=== PATIENT | female | born 1990 | race Caucasian/White ===

== ENCOUNTER 2022-04-15 22:18 | Emergency (ER) | payer BC, SELFPAY ==
[2022-04-15 22:29] VITALS: BP 133/84; PULSE 102; RESP 18; TEMP 36.8; O2SAT 100
--- NOTE | 2022-04-15 23:05 | ED.GENADULT ---
HPI - General Adult General Chief complaint: Unspecified <Anusha Rojas PA-C - Last Filed: 04/16/22 00:31> Stated complaint: thrombosed hemorrhoids <Anusha Rojas PA-C - Last Filed: 04/16/22 00:31> Time Seen by Provider: 04/15/22 22:47 <Anusha Rojas PA-C - Last Filed: 04/16/22 00:31> Source: patient <Anusha Rojas PA-C - Last Filed: 04/16/22 00:31> Mode of arrival: ambulatory <JORGE Syed Last Filed: 04/16/22 00:31> Limitations: no limitations <Anusha Rojas PA-C - Last Filed: 04/16/22 00:31> History of Present Illness HPI narrative: This is a 31-year-old female that presents to the emergency department for rectal pain worsening over the last couple of days. Reports longstanding history of hemorrhoids. Reports she feels as if she has a thrombosed 1 currently. She has tried several udri-ecy-pdbhycv treatments without relief including topical corticosteroid, steroid suppository, and Tucks pads. Patient is currently 38 weeks , her OB is Dr. Mcintyre. Prompted her to be seen in the ED to possibly have the hemorrhoid lanced. Denies pelvic cramping, vaginal bleeding, or any other related concerns. <Anusha Rojas PA-C - Last Filed: 04/16/22 00:31> Related Data Home medications: Home Medications Medication Instructions Recorded Confirmed ferrous sulfate 325 mg (65 mg 325 mg PO DAILY 03/27/22 03/27/22 iron) tablet prenat.vits,erick,uhj-rygj-mdlqa 1 tablet PO DAILY 03/27/22 03/27/22 sertraline 50 mg tablet 50 mg PO DAILY 03/27/22 03/27/22 doxylamine 20 mg-pyridoxine 20 mg tablet PO 04/15/22 tablet,immediate and delayed release (Bonjesta) <JORGE Syed Last Filed: 04/16/22 00:31> Allergies/adverse reactions: Allergies Allergy/AdvReac Type Severity Reaction Status Date / Time No Known Allergies Allergy Verified 04/15/22 22:32 <Anusha Rojas PA-C - Last Filed: 04/16/22 00:31> Review of Systems Review of Systems: CONSTITUTIONAL: Denies fever GASTROINTESTINAL: Reports rectal pain <Anusha Rojas PA-C - Last Filed: 04/16/22 00:31> All systems reviewed & are unremarkable except as noted in HPI and below <Anusha Rojas PA-C - Last Filed: 04/16/22 00:31> PMFSH Past Medical History Medical History: Medical History (Updated 04/16/22 @ 00:20 by Anusha Rojas PA-C) History of depression <Anusha Rojas PA-C - Last Filed: 04/16/22 00:31> Family History Family History: Family History (Updated 03/27/22 @ 13:20 by Mena Dominique RN) Father Hypertension Mother Diabetes mellitus Colon cancer <Anusha Rojas PA-C - Last Filed: 04/16/22 00:31> Social History Social History: Social History Substance use: never Spiritual care concerns: No <Anusha Rojas PA-C - Last Filed: 04/16/22 00:31> Exam Narrative: GENERAL: Well-appearing, well-nourished, and in no acute distress. HEAD: Normocephalic, atraumatic. EYES: EOMI. CHEST: No respiratory distress. HEART: Regular rate ABDOMEN: Gravid EXTREMITIES: Normal range of motion. No edema. SKIN: Warm, dry, no rash. NEURO: No focal deficits. Alert and oriented x3. 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 <Mirza Ray MD - Last Filed: 04/16/22 01:05> Consultations Consultation #1: Spoke with Dr. Mcintyre about patient and workup who agrees with incision of thrombosed hemorrhoid for some temporary relief <Anusha Rojas PA-C - Last Filed: 04/16/22 00:31> Date: 04/15/22 <Anusha Rojas PA-C - Last Filed: 04/16/22 00:31> Vital Signs Vital signs: Vital Signs Temperature 36.8 C 04/15/22 22:29 Pulse Rate 102 H 04/15/22 22:29 Respiratory Rate 18 04/15/22 22:29 Blood Pressu
[2022-04-15] MEDS: LIDOCAINE, EPINEPHRINE, TETRACAINE VISCOUS SOLN 3 ML TOPICAL (23:13)
[2022-04-16 00:24] VITALS: BP 106/69; PULSE 94; RESP 19; O2SAT 98
== END 2022-04-16 00:39 | disposition home or self-care (01) ==
PROVIDERS: Emergency Provider Emergency Medicine; PCP Physician Assistant Medical
DX: K64.5 Perianal venous thrombosis (principal); F32.A Depression, unspecified
CPT/HCPCS: 46083; 99283

== ENCOUNTER 2022-04-19 10:19 | Inpatient (IN) | payer BC, SELFPAY ==
[2022-04-19] VITALS (19 sets, daily range): BP systolic 121–144; BP diastolic 69–122; PULSE 68–107; RESP 14–18; TEMP 36.2–37; O2SAT 97–100; BMI 28.4
[2022-04-19] MEDS: ONDANSETRON INJ 4 MG/2 ML VIAL IV PUSH (10:39)
[2022-04-19] MEDS: LACTATED RINGERS 1,000 ML 125 ML IV CONT (10:41)
[2022-04-19 10:54] LABS: Hematocrit 34.9 % (37.0-47.0); Hemoglobin 10.4 g/dL (12.0-15.0); Mean Corpuscular HGB Conc 29.8 g/dl (32-36); Mean Corpuscular Hemoglobin 26.3 pg (26-34); Mean Corpuscular Volume 88.4 fl (80-100); Mean Platelet Volume 10.1 fl (7.4-10.4); Platelet Count Result 260 k/mm3 (150-375); Red Blood Count 3.95 M/mm3 (4.2-5.4); Red Cell Distribution Width 22.5 % (11.5-14.5); White Blood Count 8.9 K/mm3 (4.5-10.0)
[2022-04-19] MEDS: fentaNYL CITRATE INJ (*CRX) 100 MCG/2 ML VIAL IV PUSH (11:05)
[2022-04-19 11:29] LABS: Total Cells Counted 100
[2022-04-19 11:30] LABS: Anisocytosis 1+ (NORMAL); Band Neutrophils Percent 26 % (0-6); Lymphocytes Absolute Manual 1.86 K/mm3 (1.1-4.5); Lymphocytes Percent Manual 21 % (18-44); Metamyelocytes Percent 5 %; Monocytes Absolute Manual 0.62 K/mm3 (0.1-0.90); Monocytes Percent Manual 7 % (3-9); Neutrophils Absolute Manual 5.96 K/mm3 (1.7-7.2); Neutrophils Percent Manual 41 % (46-73); Platelet Estimate Adequate (Adequate); Poikilocytosis 1+ (NORMAL)
[2022-04-19] MEDS: LIDOCAINE HCL 1% LOCAL INJ 10 ML VIAL (11:40)
--- NOTE | 2022-04-19 11:57 | WPDOBADMIT ---
Obstetrics - Admit Note Admission Note: record reviewed. Additions to the history and/or subsequent changes in the physical findings follow. 31 y/o at 39 1/7 weeks gestation who presented with contractions. Had SROM with thick meconium. GBS neg. AVSS ABD soft, nontender, gravid, vertex EXT nontender Cervix C/+2 A: IUP at term with labor, meconium. P: See delivery note.
--- NOTE | 2022-04-19 11:57 | PM.OBPRVD ---
OB - Delivery Note Procedure Delivery date: 04/19/22 Procedure: Induction method: None Delivery monitor: External FHT and External Uterine Route of delivery: Laceration Description: Perineal - 2nd Degree Delivery repair: vicryl (3-0) Specimen: Yes (cord blood, placenta) Quantitative Blood Loss (ml): 160 Anesthesia type: Local (1% lidocaine) Disposition: PACU Complications: None Narrative: 31 y/o at 39 1/7 weeks gestation who presented to the hospital with contractions. Had SROM with thick meconium. Her labor progressed rapidly. She pushed with good effort and delivered the infant's head to the perineum, followed by the body. The cord was clamped and cut and the was handed off to the waiting network systems integrator. Cord blood was collected. The placenta delivered spontaneously and was grossly normal in appearance. The usual 3 vessel cord was noted. A second degree midline perineal laceration was sustained. This was infiltrated with 10 mL of 1% lidocaine and reapproximated using 3 0 Vicryl in the usual layered fashion. Excellent hemostasis resulted as did excellent reapproximation of the normal anatomy. Needle and instrument counts were correct. The patient was taken to recovery room in stable condition. The went to the special care nursery. I was present and scrubbed for the entire delivery. Baby Date of : 04/19/22 Time of : 11:27 Weeks of gestation at delivery: 39 gender: Male Weight (pounds): 8 Weight (ounces): 7 presentation: vertex position: Left Occiput Anterior Placenta delivery description: Spontaneous and Normal Configuration Cord Vessel Description: 3 Vessels
--- NOTE | 2022-04-19 12:00 | PM.OBDSVD ---
DS: Admitting Diagnosis Discharge Date 04/20/22 Admitting Diagnosis IUP at term Labor DS: Discharge Diagnosis Discharge Diagnosis (1) (normal spontaneous vaginal delivery): Code(s): O80 - Encounter for full-term uncomplicated delivery Status: Acute OB - DS: Summary OB Procedures : None OB Procedures Intrapartum: Spontaneous Vag Delivery OB Procedures: : None Time Spent with Patient Time attestation: Total time spent providing and/or coordinating discharge services: DS: Data Data Completed and Pending Labs on day of discharge: Labs from last 24 hours 04/19/22 04/19/22 10:36 10:36 WBC 8.9 RBC 3.95 L Hgb 10.4 L Hct 34.9 L MCV 88.4 MCH 26.3 MCHC 29.8 L RDW 22.5 H Plt Count 260 MPV 10.1 Immature Gran % (Auto) Snow Plow Operator Neut % (Auto) Snow Plow Operator Lymph % (Auto) Snow Plow Operator Bay % (Auto) Snow Plow Operator Eos % (Auto) Snow Plow Operator Baso % (Auto) Snow Plow Operator Lymph # (Auto) Snow Plow Operator Bay # (Auto) Snow Plow Operator Eos # (Auto) Snow Plow Operator Baso # (Auto) Snow Plow Operator Abs Immat Gran (auto) Snow Plow Operator Absolute Neuts (auto) Snow Plow Operator Absolute Nucleated RBC Snow Plow Operator Total Counted 100 Neutrophils % (Manual) 41 L Band Neutrophils % 26 H Lymphocytes % (Manual) 21 Monocytes % (Manual) 7 Metamyelocytes % 5 Nucleated RBC % Snow Plow Operator Abs Neuts (Manual) 5.96 Abs Lymphs (Manual) 1.86 Abs Monocytes (Manual) 0.62 Platelet Estimate Adequate Poikilocytosis 1+ Anisocytosis 1+ RPR Pending Discharge Plan Discharge Attending physician on discharge: Dandre Mcintyre Discharging Clinician: Dandre Mcintyre Patient Disposition: Home, Self-Care Activity: pelvic rest Diet: regular Discharge Instructions: Call or return if temperature above 100.4? F, increased abdominal pain, increased vaginal bleeding or any new problems. Sitz baths three times daily. Stand Alone Forms: General Discharge Information Follow-up/Referrals: Dandre Mcintyre MD [Physician] - 6 Weeks Discharge Medications: New ibuprofen 600 mg tablet 600 mg PO Q6H PRN (Reason: cramps) Qty: 30 0RF sertraline [Zoloft] 100 mg tablet 100 mg PO DAILY Qty: 30 0RF Continued lidocaine [RectiCare] 5 % cream 1 applic topical BID PRN (Reason: pain) Qty: 15 0RF ferrous sulfate 325 mg (65 mg iron) Tablet 325 mg PO DAILY #2 Tablet 1 tablet PO DAILY Discontinued Bonjesta 20-20 mg tablet,IR,delayed rel,biphasic PO sertraline 50 mg Tablet 50 mg PO DAILY Date of admission: 04/19/22 10:19 Primary Care Provider: Radha,Nay Garrett Admitting Provider: Dandre Mcintyre Attending physician on admission: Dandre Mcintyre Condition: Stable
[2022-04-19] MEDS: ACETAMINOPHEN 500 MG TABLET 1000 MG (12:05)
--- NOTE | 2022-04-19 12:05 | LDADM ---
This patient, Stella Haynes, was admitted to Labor/Delivery/Recovery 107 on 04/19/22 at 10:19. Plans for labor, pain management and were discussed with patient. Patient/family oriented to hospital policies and general routines including ID bracelet, bed and alarms, visiting hours, pain management, procedures, bathroom and other care routines, personal items, smoking policy, room service/diet and guest tray routines, security routines, and visiting hours. Patient/Family are encouraged to report perceived risks to care and to ask questions if they do not understand what they are told or what they should do. See OBIX for further documentation.
[2022-04-19] MEDS: OXYTOCIN 30 UNITS/NS 500 ML 30 UNITS/500 ML BAG 125 UNITS IV CONT (12:08)
[2022-04-19] MEDS: WITCH HAZEL 40 PADS 1 PAD TOPICAL (12:41)
[2022-04-19] MEDS: BENZOCAINE 20% AER SPR (*SP) 56 GM CAN 1 SPRAY TOPICAL (12:41)
[2022-04-19] MEDS: IBUPROFEN 600 MG TABLET PO ×2 (15:25→21:11)
[2022-04-19] MEDS: ACETAMINOPHEN 325 MG TABLET 650 MG PO ×2 (18:15→23:47)
[2022-04-19] MEDS: DOCUSATE SODIUM 100 MG CAPSULE PO (18:15)
[2022-04-20 04:50] VITALS: BP 122/85; PULSE 71; RESP 16; TEMP 36.8; O2SAT 100
[2022-04-20] MEDS: IBUPROFEN 600 MG TABLET PO ×2 (04:54→10:58)
[2022-04-20 05:10] VITALS: PULSE 71; RESP 16; O2SAT 100
[2022-04-20 05:19] LABS: Hematocrit 28.3 % (37.0-47.0); Hemoglobin 8.4 g/dL (12.0-15.0)
[2022-04-20 06:10] LABS: Rapid Plasma Reagin Non-Reactive (NonReactive)
[2022-04-20 07:50] VITALS: BP 120/64; PULSE 74; RESP 16; TEMP 37.1; O2SAT 99
--- NOTE | 2022-04-20 08:53 | P.PNOB_ITS ---
OB - PN: Subj Subjective Date/time seen: 04/20/22 08:53 Narrative: Pain OK. Still has hemorrhoid pain. Baby was transferred yesterday. Stella would like to go home. OB - PN: Obj Data Labs CBC & Chem 7: 04/20/22 04:45 Labs: Laboratory Results - last 24 hr 04/19/22 04/19/22 04/19/22 10:36 10:36 10:36 WBC 8.9 RBC 3.95 L Hgb 10.4 L Hct 34.9 L MCV 88.4 MCH 26.3 MCHC 29.8 L RDW 22.5 H Plt Count 260 MPV 10.1 Immature Gran % (Auto) Insurance Verifier Neut % (Auto) Insurance Verifier Lymph % (Auto) Insurance Verifier Braxton % (Auto) Insurance Verifier Eos % (Auto) Insurance Verifier Baso % (Auto) Insurance Verifier Lymph # (Auto) Insurance Verifier Braxton # (Auto) Insurance Verifier Eos # (Auto) Insurance Verifier Baso # (Auto) Insurance Verifier Abs Immat Gran (auto) Insurance Verifier Absolute Neuts (auto) Insurance Verifier Absolute Nucleated RBC Insurance Verifier Total Counted 100 Neutrophils % (Manual) 41 L Band Neutrophils % 26 H Lymphocytes % (Manual) 21 Monocytes % (Manual) 7 Metamyelocytes % 5 Nucleated RBC % Insurance Verifier Abs Neuts (Manual) 5.96 Abs Lymphs (Manual) 1.86 Abs Monocytes (Manual) 0.62 Platelet Estimate Adequate Poikilocytosis 1+ Anisocytosis 1+ RPR Non-reactive Blood Type O Positive Antibody Screen Negative 04/20/22 04:45 WBC RBC Hgb 8.4 L Hct 28.3 L MCV MCH MCHC RDW Plt Count MPV Immature Gran % (Auto) Neut % (Auto) Lymph % (Auto) Braxton % (Auto) Eos % (Auto) Baso % (Auto) Lymph # (Auto) Braxton # (Auto) Eos # (Auto) Baso # (Auto) Abs Immat Gran (auto) Absolute Neuts (auto) Absolute Nucleated RBC Total Counted Neutrophils % (Manual) Band Neutrophils % Lymphocytes % (Manual) Monocytes % (Manual) Metamyelocytes % Nucleated RBC % Abs Neuts (Manual) Abs Lymphs (Manual) Abs Monocytes (Manual) Platelet Estimate Poikilocytosis Anisocytosis RPR Blood Type Antibody Screen OB - PN A/P Assessment and Plan (1) (normal spontaneous vaginal delivery): Code(s): O80 - Encounter for full-term uncomplicated delivery Status: Acute Plan Comments: A: PPD#1, doing well. P: Home to f/u 6 weeks. Exam Psych: Other: AVSS ABD soft, nontender, fundus firm EXT nontender Perineum shows a small, soft hematoma at the repair site. Hemorrhoids noted.
[2022-04-20] MEDS: MULTIVIT/MIN/PREN/FOL AC/IRON TABLET 1 TAB PO (09:03)
[2022-04-20] MEDS: DOCUSATE SODIUM 100 MG CAPSULE PO (09:03)
[2022-04-20] MEDS: ACETAMINOPHEN 325 MG TABLET 650 MG PO (09:03)
[2022-04-20] MEDS: SERTRALINE HCL 50 MG TABLET 100 MG PO (09:03)
[2022-04-20] MEDS: POLYSACCHARIDE IRON COMPLEX 150 MG CAPSULE PO (09:04)
[2022-04-20] MEDS: AZITHROMYCIN 250 MG TABLET PO (09:10)
[2022-04-20 09:30] VITALS: PULSE 74; RESP 16; O2SAT 99
--- NOTE | 2022-04-20 10:28 | WPDANLDPN2 ---
Anes-Prog Note L&D Date/Time: 04/20/22 10:28 Epidural/Spinal procedure site: clean & non-tender Neuro status: Neuro function grossly intact. Cardiovascular status: normal Respiratory status: normal Airway patency: baseline Mental status: baseline Post-Op hydration status: normal Vital Signs: Last Vital Signs Temp 37.1 C 04/20/22 07:50 Pulse 74 04/20/22 09:30 Resp 16 04/20/22 09:30 BP 120/64 04/20/22 07:50 Pulse Ox 99 04/20/22 09:30 O2 Del Method Room Air 04/20/22 09:30 Pain score (VAS): 0 I/O: Intake & Output 04/19/22 04/20/22 04/20/22 23:59 07:59 15:59 Intake Total 550 240 Output Total 178 Balance 372 240 Post-procedural complaints: none Patient feedback: Patient satisfied with anesthetic care. Other findings: Unsuccessful epidural attempt. Patient now comfortable.
== END 2022-04-20 11:30 | disposition home or self-care (01) | DRG 807 ==
LOC: ANHLDR 10:31 → ANHOB2 16:44
PROVIDERS: Admitting Provider Obstetrics & Gynecology; PCP Physician Assistant Medical; Visit Provider Obstetrics & Gynecology
DX: O77.0 Labor and delivery complicated by meconium in amniotic fluid (principal); Z37.0 Single live birth; O70.1 Second degree perineal laceration during delivery; K64.9 Unspecified hemorrhoids; O62.3 Precipitate labor; Z3A.39 39 weeks gestation of pregnancy
CPT/HCPCS: 36415; 85014; 85018; 85025; 86592; 86850; 86900; 86901; 88307; A9270; J2405; J2590; J2795; J3010; J7120

== ENCOUNTER 2024-02-25 09:08 | Outpatient (CLI) | payer BC, SELFPAY ==
--- NOTE | ~2024-02-25 | MMUS_ITS ---
EXAMINATION: MM diagnostic ingrid BI w [facility], US breast BI complete HISTORY: Probable right breast mass TECHNIQUE: Additional 3-D tomosynthesis images of the breasts were performed and synthetic 2-D images were generated. CAD analysis was submitted and interpreted. High resolution bilateral complete breas t ultrasound was performed. COMPARISON: No prior studies for comparison. BREAST PARENCHYMAL COMPOSITION: Dense: The breasts are extremely dense, which lowers the sensitivity of mammography. FINDINGS: MAMMOGRAPHIC FINDINGS: There are no suspicious masses, calcifications or architectural distortion in either breast to sugges t malignancy. ULTRASOUND: Complete bilateral US of all 4 quadrants of the breasts and retroareolar region was reviewed. Normal heterogeneous echotexture without focal solid or cystic mass. IMPRESSION: 1. No evidence for malignancy in either breast. 2. Routine yearly screening mammogram and regular clinical breast examination are recommended. BI-RADS Category 1: Negative Reviewed, dictated and finalized at location B. IMPRESSION: 1. No evidence for malignancy in either breast. 2. Routine yearly screening mammogram and regular clinical breast examination a re recommended. BI-RADS Category 1: Negative
== END 2024-02-25 09:09 ==
LOC: MICIMG 09:10
PROVIDERS: PCP Obstetrics & Gynecology; Visit Provider Obstetrics & Gynecology
DX: R92.8 Other abnormal and inconclusive findings on diagnostic imaging of breast (principal)
CPT/HCPCS: 76641; 77062; 77066; G0279

== ENCOUNTER 2024-04-10 00:52 | Day surgery (SDC) | payer BC, SELFPAY ==
[2024-03-23 10:47] VITALS: BMI 20.9
[2024-04-10 09:03] VITALS: BP 118/78; PULSE 96; RESP 16; TEMP 36.5; O2SAT 100; BMI 20.1
[2024-04-10] MEDS: LACTATED RINGERS 1,000 ML 150 ML IV CONT (09:21)
--- NOTE | 2024-04-10 09:37 | P.PNAN_ITS ---
Anes - Initial Pre Proc Eval Procedure: Operation Date: 04/10/24 10:30 Proposed Procedures p Colonoscopy - Darrian Rivas MD Date/Time: 04/10/24 09:37 Surgeon: Darrian Rivas MD Pre Op Diagnosis: Abd. Pain, constipation, CIBH Patient Data Age: 33 Gender: F Height: 1.68 m Weight: 56.7 kg Last Vital Signs Temp 36.5 C 04/10/24 09:03 Pulse 96 04/10/24 09:03 Resp 16 04/10/24 09:03 BP 118/78 04/10/24 09:03 Pulse Ox 100 04/10/24 09:03 O2 Del Method Room Air 04/10/24 09:03 Allergies Allergy/AdvReac Type Severity Reaction Status Date / Time No Known Allergies Allergy Verified 04/10/24 09:10 Home Medications Medication Instructions Recorded Confirmed Type prenat.vits,erick,vye-uqfr-gvwao 1 tablet PO DAILY 03/27/22 04/10/24 History sertraline 100 mg tablet (Zoloft) 100 mg PO DAILY #30 tabs 04/20/22 04/10/24 Rx Patient hx anesthesia problems: none Family hx anesthesia problems: none Results Review: All pre-operative results and documents have been reviewed as part of the pre- operative evaluation. [facility] Past Medical History Medical History History of depression Family History Family History Father Hypertension Mother Diabetes mellitus Colon cancer Social History Social History Smoking status: Never smoker Substance use: never Substance use type: does not use Living arrangements: with family Spiritual care concerns: No Anes - Eval Final PreProcedure Day of Procedure 04/10/24 09:37 Patient weight: normal Heart: regular rate and rhythm Lungs: clear to auscultation Airway: Mallampati scale class II Neurological: alert and oriented Last oral intake: >/= 8 hours ASA classification: II Emergent: no Anesthetic plan: proceed Anesthesia type and monitoring: general GIVS and standard monitoring Results Review: All pre-operative results and documents have been reviewed as part of the pre- operative evaluation. Informed Consent: The patient's anesthetic plan and its attendant risks and benefits were discussed with the patient/family/POA. Questions were solicited and answers provided to the satisfaction of the patient/family/POA.
--- NOTE | 2024-04-10 09:47 | PM.HPGS ---
History of Present Illness History of Present Illness Consent: Risks, benefits, and alternatives have been discussed and questions answered. Patient agrees to proceed with procedure. Chief complaint: Abd. Pain, constipation Narrative: Stella Haynes is a 33 year old female with intermittent lower abdominal pain, never had colonoscopy Review of Systems Review of Systems: All systems reviewed & are unremarkable except as noted in HPI and below PMFSH Past Medical History Medical History (Updated 04/10/24 @ 09:49 by Darrian Rivas MD) History of depression Lower abdominal pain Family History Family History Father Hypertension Mother Diabetes mellitus Colon cancer Social History Social History Smoking status: Never smoker Substance use: never Substance use type: does not use Living arrangements: with family Spiritual care concerns: No Meds Home Medications and Allergies Home Medications Medication Instructions Recorded Confirmed Type prenat.vits,erick,kqu-fsgk-wcdhm 1 tablet PO DAILY 03/27/22 04/10/24 History sertraline 100 mg tablet (Zoloft) 100 mg PO DAILY #30 tabs 04/20/22 04/10/24 Rx Allergies Allergy/AdvReac Type Severity Reaction Status Date / Time No Known Allergies Allergy Verified 04/10/24 09:10 Vital Signs Vital Signs - 24 hr 04/10/24 09:03 Temperature 97.7 F Pulse Rate 96 Respiratory Rate 16 Blood Pressure 118/78 Pulse Oximetry 100 Oxygen Delivery Room Air Exam Const: General: comfortable and no acute distress HENMT: Face/Nose/Sinus: Normal nares present Eyes: General: appearance normal, both eyes and all related structures Neck: Neck: no JVD Resp: Auscultation: clear to auscultation bilaterally Cardio: Rate: regular rate Rhythm: regular rhythm GI: Inspection: non-distended GI Palp: Yes Soft to palpation Skin: General skin exam: normal color Neuro: General: gait normal Speech: normal speech Extrem: General: normal to inspection Psych: Mental Status: mental status grossly normal Assessment and Plan Assessment and plan (1) Lower abdominal pain: Code(s): R10.30 - Lower abdominal pain, unspecified Status: Acute Assessment and Plan: colonoscopy
[2024-04-10 10:06] VITALS: BP 97/55; PULSE 78; RESP 20; O2SAT 99
[2024-04-10 10:16] VITALS: BP 93/61; PULSE 75; RESP 17; O2SAT 99
[2024-04-10 10:26] VITALS: BP 103/63; PULSE 70; RESP 17; O2SAT 99
== END 2024-04-10 10:36 | disposition home or self-care (01) ==
PROVIDERS: PCP Obstetrics & Gynecology; Visit Provider Internal Medicine Gastroenterology
PROC: 0DJD8ZZ Inspection of Lower Intestinal Tract, Via Natural or Artificial Opening Endoscopic (ICD-10-PCS; CPT 45378; principal; 2024-04-10 10:30)
DX: D12.0 Benign neoplasm of cecum (principal); K64.8 Other hemorrhoids; F32.A Depression, unspecified
CPT/HCPCS: 45385; 88305; J2704; J7120